=== PATIENT | male | born 1950 | race Caucasian/White ===

== ENCOUNTER 2017-07-09 06:56 | Day surgery (SDC) | payer OTHER, MEDICARE ==
[2017-07-09] MEDS ORDERED: MIDAZOLAM 2 MG/2 ML VIAL IVP ONE ×2 (07:04→10:45)
[2017-07-09] MEDS ORDERED: fentaNYL 100 MCG/2 ML INJ IVP ONE (07:04)
[2017-07-09] MEDS ORDERED: BENZOCAINE UNIT DOSE SPRAY HURRICAINE MM ONE (07:04)
[2017-07-09] MEDS ORDERED: NS 500 ML IV ONE (07:04)
--- NOTE | 2017-07-09 09:24 | PDPROPOC ---
Sedation Plan of Care Sedation Plan of Care: vital signs stable, mental status noted, patient educated of risks, benefits, alternatives, patient can tolerate sedation ASA Classification: ASA 2 Planned drugs: fentanyl, midazolam Mallampati Score: Class 2 Mallampati Reference Image: Patient passed 3-3-2 rule?: Yes
--- NOTE | 2017-07-09 09:24 | PDGENHP ---
History & Physical History of Present Illness: 66 yo M with CAD and known MR. Needs MARK for worsening MR seen on TTE Pertinent Past, Social, Family History: reviewed from office note 05/2016 Relevant Physical Exam: RRR II/ holosystolic murmur apex. Lungs CTAB Cardiorespiratory Assessment: stable
[2017-07-09] MEDS ORDERED: fentaNYL 100 MCG/2 ML INJ ONE (09:56)
[2017-07-09] MEDS ORDERED: MIDAZOLAM 2 MG/2 ML VIAL ONE (09:56)
--- NOTE | 2017-07-13 09:54 | ECHO ---
[email or web address] [address] [address] Main: [phone] Fax: Transesophageal Echocardiography Name: SEPIDEH SANDOVAL MR#: [id number] Study Date: 07/09/2017 Study Time: 09:01 AM Date of : 1950 Age: 66 year(s) Height: 178 cm (70.08 in.) Weight: 65 kg (143.31 lb.) BSA: 1.81 m2 Gender: Male Examination: MARK Indication: Suspected mitral valve prolapse Image Quality: Contrast: Requested by: Jennifer Crawford Heart Rate: Rhythm: BP: / Procedure Staff Wardrobe Stylist: Adrian Jean Baptiste Reading Physician: Jennifer Crawford Requesting Provider: MARK Exam Details Patient Consent: Risks, alternatives of procedure explained to patient, informed consent obtained. Patient Fasting: yes Conclusions: The ejection fraction is estimated to be 60-65 %. No regional wall motion abnormality. Normal size right ventricle. The left atrium is mildly dilated. An agitated saline study was performed and was positive for intracardiac shunting. small PFO. The right atrium is normal in size. There is moderate prolapse of the anterior leaflet of the mitral valve. Mild to moderate mitral regurgitation. The aortic valve is tri-leaflet. The aortic valve is normal in appearance and function. Mild tricuspid regurgitation is present. Measurements: Chambers Valvular Assessment AV/MV Valvular Assessment TV/PV Normal Normal Normal Name Value Range Name Value Range Name Value Range EF Range: 60-65 % TR Vmax: 2.63 mm/s ( - ) TR PGmax: 28 mmHg ( - ) syst. PAP: 33 mmHg ( - ) Additional Measurements: Patient: SEPIDEH SANDOVAL Study Date: 07/09/2017 Page 1 of 2 09:01 AM Chambers Valvular Assessment TV/PV Name Value Name Value LADs Lon.2 cm CVP (est.): 5 mmHg LA Area: 27.4 cm2 LA Volume: 73 ml LA Volume Index: 40.3 ml/m2 Findings: Left Ventricle: The ejection fraction is estimated to be 60-65 %. No regional wall motion abnormality. Right Ventricle: Normal size right ventricle. Left Atrium: The left atrium is mildly dilated. An agitated saline study was performed and was positive for intracardiac shunting. Right Atrium: The right atrium is normal in size. small PFO. Mitral Valve: There is moderate prolapse of the anterior leaflet of the mitral valve. Mild to moderate mitral regurgitation. Aortic Valve: The aortic valve is tri-leaflet. The aortic valve is normal in appearance and function. Tricuspid Valve: The tricuspid valve appears normal. Mild tricuspid regurgitation is present. Pulmonic Valve: The pulmonic valve is normal in appearance and function. Aorta: The aorta is normal. Pericardium: No pericardial effusion. Exam Comments: There is a prominate anterior mitral valve leaflet, with mild eccentric MR.. l1n (No Signature Object) Patient: SEPIDEH SANDOVAL Study Date: 07/09/2017 Page 2 of 2 09:01 AM [id number]
== END 2017-07-09 11:46 | disposition home or self-care (01) ==
LOC: FCATH 06:56
PROVIDERS: ATTEND Internal Medicine Cardiovascular Disease
PROC: B245ZZ4 Ultrasonography of Left Heart, Transesophageal (ICD-10-PCS; principal; 2017-07-09)
DX: I34.0 Nonrheumatic mitral (valve) insufficiency (principal); I25.10 Atherosclerotic heart disease of native coronary artery without angina pectoris
CPT/HCPCS: J2250; J3010

== ENCOUNTER → 2018-09-18 | Outpatient (CLI) | payer OTHER, MEDICARE | LOC: BHFA 10:45 | PROVIDERS: ATTEND Internal Medicine Cardiovascular Disease | DX: I34.0 Nonrheumatic mitral (valve) insufficiency (principal) ==